=== PATIENT | male | born 1995 | race American Indian/Alaskan Native ===

== ENCOUNTER 2017-03-30 10:16 | Emergency (ER) | payer SELFPAY ==
[2017-03-30] MEDS ORDERED: ROCEPHIN IM ONE (11:19)
[2017-03-30] MEDS ORDERED: XYLOCAINE 1% MPF 5 mL INFILTRATI ONE (11:19)
[2017-03-30] MEDS ORDERED: MOTRIN PO ONE (11:20)
[2017-03-30] MEDS ORDERED: VIBRAMYCIN PO ONE (11:20)
--- NOTE | 2017-03-30 11:21 | Emergency Department Report ---
- General Chief complaint: Skin/Abscess/Foreign Body Stated complaint: GROIN PAIN Time Seen by Provider: 03/30/17 10:39 Source: patient Mode of arrival: Ambulatory Limitations: No Limitations - History of Present Illness MD complaint: lesion (right inguinal lesion) - Related Data Previous Rx's Medication Instructions Recorded Last Taken Type Ibuprofen [Motrin] 800 mg PO Q8HR PRN #60 tablet 09/02/15 Unknown Rx methOCARBAMOL [Robaxin TAB] 500 mg PO BID #10 tab 09/02/15 Unknown Rx traMADol [Ultram] 50 mg PO Q6HR PRN #14 tablet 09/02/15 Unknown Rx traMADol [Ultram 50 MG tab] 50 mg PO Q6HR PRN #20 tablet 11/04/15 Unknown Rx Allergies Allergy/AdvReac Type Severity Reaction Status Date / Time shellfish derived Allergy Itching Verified 09/02/15 18:57 Abscess Boil HPI - HPI Chief Complaint: Skin/Abscess/Foreign Body Stated Complaint: GROIN PAIN Time Seen by Provider: 03/30/17 10:39 Home Medications: Previous Rx's Medication Instructions Recorded Last Taken Type Ibuprofen [Motrin] 800 mg PO Q8HR PRN #60 tablet 09/02/15 Unknown Rx methOCARBAMOL [Robaxin TAB] 500 mg PO BID #10 tab 09/02/15 Unknown Rx traMADol [Ultram] 50 mg PO Q6HR PRN #14 tablet 09/02/15 Unknown Rx traMADol [Ultram 50 MG tab] 50 mg PO Q6HR PRN #20 tablet 11/04/15 Unknown Rx Allergies/Adverse Reactions: Allergies Allergy/AdvReac Type Severity Reaction Status Date / Time shellfish derived Allergy Itching Verified 09/02/15 18:57 ED Review of Systems ROS: Stated complaint: GROIN PAIN Other details as noted in HPI ED Past Medical Hx - Past Medical History Previous Medical History?: No - Surgical History Past Surgical History?: No - Social History Smoking Status: Never Smoker Substance Use Type: None - Medications Home Medications: Home Medications Medication Instructions Recorded Confirmed Last Taken Type Ibuprofen [Motrin] 800 mg PO Q8HR PRN #60 tablet 09/02/15 Unknown Rx methOCARBAMOL [Robaxin TAB] 500 mg PO BID #10 tab 09/02/15 Unknown Rx traMADol [Ultram] 50 mg PO Q6HR PRN #14 tablet 09/02/15 Unknown Rx traMADol [Ultram 50 MG tab] 50 mg PO Q6HR PRN #20 tablet 11/04/15 Unknown Rx ED Physical Exam - General Limitations: No Limitations ED Course Vital Signs 03/30/17 10:21 Temperature 97.7 F Pulse Rate 99 H Respiratory 18 Rate Blood Pressure 152/89 O2 Sat by Pulse 97 Oximetry Critical care attestation.: If time is entered above; I have spent that time in minutes in the direct care of this critically ill patient, excluding procedure time. ED Disposition Condition: Stable Referrals: PRIMARY CARE, [Primary Care Provider] - 3-5 Days
[2017-03-30 11:58] VITALS: BP 168/82
--- NOTE | 2017-03-30 12:46 | Emergency Department Report ---
Entered by JOSE SILVEIRA, acting as scribe for JAD REDD PA. <JAD REDD - Last Filed: 03/30/17 12:46> - General Chief complaint: Skin/Abscess/Foreign Body Stated complaint: GROIN PAIN Time Seen by Provider: 03/30/17 11:15 Source: patient Mode of arrival: Ambulatory Limitations: No Limitations - History of Present Illness Initial comments: 21 y/o male with PMHx of HIV and syphilis, presents to the ED c/o cyst in right groin area that began 3 days ago. Associated symptoms include pain to right groin area but he denies penile pain, testicular pain, difficulty urinating, fever and chills. Symptoms are described as a "pulling sensation" in groin. No alleviating factors but worse with walking. NKDA. SRINIVASAN complaint: other (cyst in right groin area ) Onset/Timin -: days(s) Location: genitals (right groin area) Severity: severe Severity scale (0 -10): 8 Quality: constant Consistency: constant Improves with: none Worsens with: none Context: none Associated symptoms: other (pain to right groin area, no penile pain, to testicular pain, no difficulty urinating, no fever, no chills) Treatments Prior to Arrival: none - Related Data Previous Rx's Medication Instructions Recorded Last Taken Type Ibuprofen [Motrin] 800 mg PO Q8HR PRN #60 tablet 09/02/15 Unknown Rx methOCARBAMOL [Robaxin TAB] 500 mg PO BID #10 tab 09/02/15 Unknown Rx traMADol [Ultram] 50 mg PO Q6HR PRN #14 tablet 09/02/15 Unknown Rx traMADol [Ultram 50 MG tab] 50 mg PO Q6HR PRN #20 tablet 11/04/15 Unknown Rx Doxycycline [Vibramycin CAP] 100 mg PO Q12HR #42 capsule 03/30/17 Unknown Rx Ibuprofen [Motrin] 600 mg PO Q8H PRN #25 tablet 03/30/17 Unknown Rx Allergies Allergy/AdvReac Type Severity Reaction Status Date / Time shellfish derived Allergy Itching Verified 09/02/15 18:57 Abscess Boil HPI - HPI Chief Complaint: Skin/Abscess/Foreign Body Stated Complaint: GROIN PAIN Time Seen by Provider: 03/30/17 10:39 Duration: 3 Days Location: Other (cyst in right groin area) History: No Fever, No Pain, No Purulent Drainage, No Numbness, No Foreign Body, No Previous History, No Insect Bite Home Medications: Previous Rx's Medication Instructions Recorded Last Taken Type Ibuprofen [Motrin] 800 mg PO Q8HR PRN #60 tablet 09/02/15 Unknown Rx methOCARBAMOL [Robaxin TAB] 500 mg PO BID #10 tab 09/02/15 Unknown Rx traMADol [Ultram] 50 mg PO Q6HR PRN #14 tablet 09/02/15 Unknown Rx traMADol [Ultram 50 MG tab] 50 mg PO Q6HR PRN #20 tablet 11/04/15 Unknown Rx Doxycycline [Vibramycin CAP] 100 mg PO Q12HR #42 capsule 03/30/17 Unknown Rx Ibuprofen [Motrin] 600 mg PO Q8H PRN #25 tablet 03/30/17 Unknown Rx Allergies/Adverse Reactions: Allergies Allergy/AdvReac Type Severity Reaction Status Date / Time shellfish derived Allergy Itching Verified 09/02/15 18:57 ED Review of Systems Comment: All other systems reviewed and negative Constitutional: denies: chills, fever Genitourinary: denies: testicular pain, other (penile pain, dificulty urinating) Skin: other (cyst in right groin area and pain) ED Past Medical Hx - Past Medical History Previous Medical History?: No - Surgical History Past Surgical History?: No - Social History Smoking Status: Never Smoker Substance Use Type: None - Medications Home Medications: Home Medications Medication Instructions Recorded Confirmed Last Taken Type Ibuprofen [Motrin] 800 mg PO Q8HR PRN #60 tablet 09/02/15 Unknown Rx methOCARBAMOL [Robaxin TAB] 500 mg PO BID #10 tab 09/02/15 Unknown Rx traMADol [Ultram] 50 mg PO Q6HR PRN #14 tablet 09/02/15 Unknown Rx traMADol [Ultram 50 MG tab] 50 mg PO Q6HR PRN #20 tablet 11/04/15 Unknown Rx Doxycycline [Vibramycin CAP] 100 mg PO Q12HR #42 capsule 03/30/17 Unknown Rx Ibuprofen [Motrin] 600 mg PO Q8H PRN #25 tablet 03/30/17 Unknown Rx ED Physical Exam - General Limitations: No Limitations General appearance: alert, in no apparent distress - Head Head exam: Present: atraumatic, normocephalic, normal inspection - Eye Eye exam: Present: normal appearance, PERRL, EOMI Pupils: Present: normal accommodation - ENT ENT exam: Present: normal exam, normal orophraynx, mucous membranes moist, TM's normal bilaterally, normal external ear exam - Neck Neck exam: Present: normal inspection, full ROM. Absent: tenderness - Respiratory Respiratory exam: Present: normal lung sounds bilaterally. Absent: wheezes, rales, rhonchi - Cardiovascular Cardiovascular Exam: Present: regular rate, normal rhythm, normal heart sounds. Absent: systolic murmur, diastolic murmur, rubs, gallop - GI/Abdominal GI/Abdominal exam: Present: soft, normal bowel sounds. Absent: tenderness, guarding, rebound - External exam: Present: normal external exam - Expanded Exam Expanded exam: Inguinal Lymphadenopathy: Right (palpable right sided inguinal adenopathy, no palpable or proturduign hernia in inguinal canal on fingertip palpation) image: 1 - small palpable nodule here, no fluctuance - Extremities Exam Extremities exam: Present: normal inspection, full ROM, normal capillary refill. Absent: tenderness, pedal edema, joint swelling, calf tenderness - Back Exam Back exam: Present: normal inspection, full ROM. Absent: tenderness, CVA tenderness (R), CVA tenderness (L), muscle spasm, paraspinal tenderness, vertebral tenderness, rash noted - Neurological Exam Neurological exam: Present: alert, oriented X3 - Psychiatric Psychiatric exam: Present: normal affect, normal mood - Skin Skin exam: Present: other (palpable nodule to right inguinal region) ED Course Vital Signs 03/30/17 03/30/17 03/30/17 10:21 11:33 11:57 Temperature 97.7 F Pulse Rate 99 H 72 Respiratory 18 16 18 Rate Blood Pressure 152/89 Blood Pressure 168/82 [Left] O2 Sat by Pulse 97 95 Oximetry ED Medical Decision Making - Medical Decision Making A/P: right inguinal adenopathy, clinical suspicion for LGV 1-I examined patient with Dr. Wells 2-Motrin when necessary for inguinal adenopathy, no clinical signs of inguinal hernia on palpation of inguinal canal, no scoral swelling or tenderness on exam 3-as patient is HIV positive (endorses he takes his HAART) sexually active will treat empirically for LGV as patient has clinical signs and symptoms concerning for this diagnosis. will send gc culture 4- as per [employer] recommendations empiric Tx with doxycycline 100 mg orally twice daily for 21 days 5- f/u with PMD and infectious diseases, will give pt referalls 6- I advised patient to return to the ED if swelling worsens if he experiences any testicular pain or swelling develops fevers or chills or any urinary symptoms which he does not currently have ED Disposition Disposition: - TO HOME OR SELFCARE Is pt being admited?: No Does the pt Need Aspirin: No Condition: Stable Instructions: Chlamydia Infection (ED) Additional Instructions: http://[email or web address].org/regions/[email or web address] Prescriptions: Doxycycline [Vibramycin CAP] 100 mg PO Q12HR #42 capsule Ibuprofen [Motrin] 600 mg PO Q8H PRN #25 tablet PRN Reason: Pain Referrals: MARY DUNN MD [Staff Physician] - 3-5 Days VIDA SCHOFIELD MD [Staff Physician] - 3-[address] [facility] [Provider Group] - 3-5 Days Forms: STI Treatment and Prevention, Work/School Release Form(ED) Time of Disposition: 11:40 <DORY WELLS - Last Filed: 03/30/17 19:54> ED Medical Decision Making - Medical Decision Making I have seen and examined this patient myself. I agree with the PA or [employer] plan as discussed. Likely LGV Damien Wells This documentation as recorded by the RAOUL russell ELIZABETH,accurately reflects the service I personally performed and the decisions made by me,JAD REDD PA.
== END 2017-03-30 11:57 | disposition home or self-care (01) ==
LOC: ED 10:16
DX: R10.30 Lower abdominal pain, unspecified (principal); Z91.013 Allergy to seafood
CPT/HCPCS: 87591; 96372; 99282; J0696

== ENCOUNTER 2017-08-20 07:32 | Inpatient (IN) | payer OTHER ==
[2017-08-20 08:19] LABS: Bilirubin,Urine NEG (Negative); Blood,Urine NEG (Negative); Ketones,Urine NEG (Negative); Leukocyte Esterase,Urine NEG (Negative); Mucus,Urine 3+ /HPF; Nitrite,Urine NEG (Negative); Protein,Urine <15 mg/dL mg/dL (Negative)
[2017-08-20 08:23] LABS: Basophils % (Auto) 0.2 % (0.0-1.8); Eosinophils % (Auto) 0.1 % (0.0-4.3); Hematocrit 44.6 % (35.5-45.6); Hemoglobin 14.6 gm/dl (11.8-15.2); Mean Corpuscular HGB Conc 33 % (32-34); Mean Corpuscular Hemoglobin 28 pg (28-32); Mean Corpuscular Volume 84 fl (84-94); Platelet Count 197 K/mm3 (140-440); Red Blood Count 5.29 M/mm3 (3.65-5.03); Red Cell Distribution Width 13.6 % (13.2-15.2); White Blood Count 11.6 K/mm3 (4.5-11.0)
[2017-08-20 08:37] LABS: Alanine Aminotransferase 21 units/L (7-56); Albumin 4.5 g/dL (3.9-5); Albumin/Globulin Ratio 1.4 %; Alkaline Phosphatase 61 units/L (35-129); Anion Gap 17 mmol/L; BUN/Creatinine Ratio 9; Blood Urea Nitrogen 9 mg/dL (9-20); Calcium 8.9 mg/dL (8.4-10.2); Carbon Dioxide 27 mmol/L (22-30); Chloride 97.2 mmol/L (98-107); Glucose 96 mg/dL (75-100); Lipase 28 units/L (13-60); Potassium 4.3 mmol/L (3.6-5.0); Sodium 137 mmol/L (137-145); Total Protein 7.8 g/dL (6.3-8.2)
[2017-08-20] MEDS ORDERED: NACL 0.9% 1000 ML 1,000 ML IV ONE ×2 (14:54→20:10)
[2017-08-20] MEDS ORDERED: ZITHROMAX PO ONE ×2 (15:48→20:02)
[2017-08-20] MEDS ORDERED: cefTRIAXone 0.25 GM in NACL 0.9% 20 ML IV SCH (16:00)
[2017-08-20] MEDS ORDERED: TYLENOL PO ONE (17:21)
--- NOTE | 2017-08-20 19:44 | Cat Scan Report ---
FINAL REPORT EXAM: CT ABDOMEN PELVIS W CON HISTORY: fever, diarhea TECHNIQUE: Standard enhanced CT of the abdomen and pelvis. Delayed imaging through the kidneys and bladder was obtained. Coronal and sagittal reconstruction was also performed. Contrast: 100 mL Isovue 300 given IV. Readi-Cat given as oral. PRIORS: None. FINDINGS: Concentric wall thickening from the splenic flexure is to the proximal sigmoid colon. Mild surrounding stranding in the adjacent fat is seen. Findings are consistent with colitis or Crohn's disease. Ulcerative colitis is less likely. No diverticular disease is present. Within the abdomen, the liver, pancreas, gallbladder, adrenal glands, and kidneys are unremarkable. The spleen is enlarged measuring 16.2 cm without focal abnormality. No evidence for retroperitoneal or pelvic lymphadenopathy is seen. The bowel loops have normal caliber. No soft tissue mass, fluid collection, or free air is seen within the abdomen or pelvis. The appendix is normal. Within the pelvis, the bladder is unremarkable. The prostate is normal. No evidence for mass or lymphadenopathy is seen in the pelvis. Images through the upper abdomen include the lung bases which are expanded and clear. Bony structures show no focal abnormalities and are intact. IMPRESSION: 1. Diffuse concentric wall thickening from the splenic flexure to the proximal sigmoid colon. Findings most likely consistent with colitis or Crohn's disease. 2. Megaly without focal abnormality.
--- NOTE | 2017-08-20 19:51 | Emergency Department Report ---
ED Abdominal Pain HPI - General Chief Complaint: Abdominal Pain Stated Complaint: ABDOMINAL PAIN Time Seen by Provider: 08/20/17 14:28 Source: patient Mode of arrival: Ambulatory Limitations: No Limitations - History of Present Illness Initial Comments: 22-year-old male with no significant past medical history presents to the hospital complaining of abdominal pain and diarrhea 1 week. Patient complains of generalized crampy abdominal pain rated 7/10 in intensity followed by multiple bowel movements containing only mucus. Pain worsens prior to bowel movement and is relieved after completion. For last 2 days bowel movements have include loose stools in addition to mucus. No blood reported. No fever reported. No recent travel. Patient does engage in receptive anal intercourse but denies acute or rectal pain. No fever reported. Severity scale (0 -10): 0 - Related Data Home Medications Medication Instructions Recorded Confirmed Last Taken Elviteg/Cob/Emtri/Tenof Alafen 1 each PO DAILY 08/20/17 08/20/17 08/19/17 [Genvoya Tablet] Allergies Allergy/AdvReac Type Severity Reaction Status Date / Time shellfish derived Allergy Itching Verified 09/02/15 18:57 ED Review of Systems ROS: Stated complaint: ABDOMINAL PAIN Other details as noted in HPI Comment: All other systems reviewed and negative Other: Constitutional: No fevers chills Eyes: No eye pain visual changes ENT: No ear pain or throat pain Neck: Denies pain Respiratory: Denies cough wheezing shortness of breath Cardiovascular: Denies chest pain, palpitations, syncope GI: As per HPI : Denies dysuria Musculoskeletal: Denies back pain Skin: Denies rash, lesions, erythema Neurologic: Denies headache, numbness, weakness Psychiatric: Denies suicidal ideation, hallucinations ED Past Medical Hx - Past Medical History Previous Medical History?: No - Surgical History Past Surgical History?: No - Social History Smoking Status: Never Smoker Substance Use Type: Alcohol - Medications Home Medications: Home Medications Medication Instructions Recorded Confirmed Last Taken Type Elviteg/Cob/Emtri/Tenof Alafen 1 each PO DAILY 08/20/17 08/20/17 08/19/17 History [Genvoya Tablet] ED Physical Exam - General Limitations: No Limitations - Other Other exam information: General: No limitations, patient is alert in no acute distress Head exam: Atraumatic, normocephalic Eyes exam: Normal appearance ENT: Moist mucous membrane, normal oropharynx Neck exam: Normal inspection, full range of motion, no meningismus nontender Respiratory exam: Clear to auscultation bilateral, no wheezes, rales, crackles Cardiovascular: Normal rate and rhythm, normal heart sounds Abdomen: Soft, nondistended, mild generalized abdominal tenderness, normal bowel sounds, no rebound or guarding Rectal: No rectal tenderness or palpable abscess. Brown stool no gross blood Extremity: Full range of motion normal inspection no deformity Back: Normal Inspection, full range of motion, no tenderness Neurologic: Alert, oriented x3, cranial nerves intact, no motor or sensory deficit Psychiatric: normal affect, normal mood Skin: Warm, dry, intact ED Course Vital Signs 08/20/17 08/20/17 08/20/17 07:46 07:48 13:08 Temperature 98.4 F Pulse Rate 100 H Respiratory 20 Rate Blood Pressure 145/84 145/84 Blood Pressure [Left] O2 Sat by Pulse 98 98 Oximetry 08/20/17 08/20/17 08/20/17 13:16 13:17 13:18 Temperature Pulse Rate 91 H Respiratory 18 18 Rate Blood Pressure 142/81 Blood Pressure 142/81 [Left] O2 Sat by Pulse 97 100 Oximetry 08/20/17 08/20/17 08/20/17 13:30 13:46 14:00 Temperature Pulse Rate Respiratory Rate Blood Pressure 142/81 142/81 136/73 Blood Pressure [Left] O2 Sat by Pulse 98 100 100 Oximetry 08/20/17 08/20/17 08/20/17 14:16 14:30 14:46 Temperature Pulse Rate Respiratory Rate Blood Pressure 136/73 136/73 136/73 Blood Pressure [Left] O2 Sat by Pulse 100 100 100 Oximetry 08/20/17 08/20/17 08/20/17 15:19 15:30 15:46 Temperature Pulse Rate 84 83 Respiratory 26 H 25 H Rate Blood Pressure 151/97 151/97 151/97 Blood Pressure [Left] O2 Sat by Pulse 98 100 100 Oximetry 08/20/17 08/20/17 16:00 16:16 Temperature Pulse Rate 93 H 86 Respiratory 24 26 H Rate Blood Pressure 159/94 159/94 Blood Pressure [Left] O2 Sat by Pulse 100 100 Oximetry - Reevaluation(s) Reevaluation #1: 08/20/17 19:49 Patient received normal saline. Patient developed a fever in the ED and therefore CT and Tylenol were ordered - Consultations Consultation #1: 08/20/17 15:[address] Ness counter professional GI doctor. Suggested treatment with Rocephin and a Z-Edmar for proctitis. Medications initiated in the ED 08/20/17 20:00 Case was rediscussed with Dr Ness who suggest admission to the hospital for IV antibiotics for colitis. Recommend Flagyl 500 mg 3 times a day. Patient may eat (do not make po). ED Medical Decision Making - Lab Data Result diagrams: 08/20/17 08:02 08/20/17 08:02 Lab Results 08/20/17 08/20/17 08/20/17 Range/Units 07:59 08:02 08:02 WBC 11.6 H (4.5-11.0) K/mm3 RBC 5.29 H (3.65-5.03) M/mm3 Hgb 14.6 (11.8-15.2) gm/dl Hct 44.6 (35.5-45.6) % MCV 84 (84-94) fl MCH 28 (28-32) pg MCHC 33 (32-34) % RDW 13.6 (13.2-15.2) % Plt Count 197 (140-440) K/mm3 Lymph % (Auto) 10.9 L (13.4-35.0) % [place] % (Auto) 12.5 H (0.0-7.3) % Eos % (Auto) 0.1 (0.0-4.3) % Baso % (Auto) 0.2 (0.0-1.8) % Lymph # 1.3 (1.2-5.4) K/mm3 [place] # 1.5 H (0.0-0.8) K/mm3 Eos # 0.0 (0.0-0.4) K/mm3 Baso # 0.0 (0.0-0.1) K/mm3 Seg Neutrophils % 76.3 H (40.0-70.0) % Seg Neutrophils # 8.8 H (1.8-7.7) K/mm3 Sodium 137 (137-145) mmol/L Potassium 4.3 (3.6-5.0) mmol/L Chloride 97.2 L (98-107) mmol/L Carbon Dioxide 27 (22-30) mmol/L Anion Gap 17 mmol/L BUN 9 (9-20) mg/dL Creatinine 1.0 (0.8-1.5) mg/dL Estimated GFR > 60 ml/min BUN/Creatinine Ratio 9 % Glucose 96 (75-100) mg/dL Calcium 8.9 (8.4-10.2) mg/dL Total Bilirubin 0.70 (0.1-1.2) mg/dL AST 22 (5-40) units/L ALT 21 (7-56) units/L Alkaline Phosphatase 61 (35-129) units/L Total Protein 7.8 (6.3-8.2) g/dL Albumin 4.5 (3.9-5) g/dL Albumin/Globulin Ratio 1.4 % Lipase 28 (13-60) units/L Urine Color Yellow (Yellow) Urine Turbidity Clear (Clear) Urine pH 5.0 (5.0-7.0) Ur Specific [place] 1.032 H (1.003-1.030) Urine Protein <15 mg/dl (Negative) mg/dL Urine Glucose (UA) Neg (Negative) mg/dL Urine Ketones Neg (Negative) mg/dL Urine Blood Neg (Negative) Urine Nitrite Neg (Negative) Urine Bilirubin Neg (Negative) Urine Urobilinogen 2.0 (<2.0) mg/dL Ur Leukocyte Esterase Neg (Negative) Urine WBC (Auto) 2.0 (0.0-6.0) /HPF Urine RBC (Auto) 2.0 (0.0-6.0) /HPF U Epithel Cells (Auto) < 1.0 (0-13.0) /HPF Urine Mucus 3+ /HPF - Radiology Data Radiology results: report reviewed CT abdomen and pelvis with IV contrast: Concentric wall thickening of the splenic flexure to the proximal sigmoid clubbing. Findings most likely consistent with colitis or Crohn's disease. Ulcerative colitis is less likely. No diverticular disease is present. Splenomegaly without focal abnormality - Medical Decision Making Plans admit patient to hospital for further IV antibiotics as recommended by GI. Patient received IV Rocephin and 1 g azithromycin to treat for possible STD related proctitis. GI recommended to continue Flagyl 500 mg 3 times a day and they will evaluate. Stool studies are pending in the lab. Patient continues to have multiple episodes of diarrhea in the ED - Differential Diagnosis colitis, proctitis, infectious diarrhea Critical Care Time: No Critical care attestation.: If time is entered above; I have spent that time in minutes in the direct care of this critically ill patient, excluding procedure time. ED Disposition Clinical Impression: Colitis Disposition: OP ADMIT IP TO THIS HOSP Is pt being admited?: Yes Condition: Stable Time of Disposition: 20:02 (Dr Montague/hosp)
[2017-08-20] MEDS ORDERED: FLAGYL 500 MG/100 ML 500 MG/100 ML BAG IV SCH (20:00)
[2017-08-20] MEDS ORDERED: ZOFRAN IV PRN (22:46)
[2017-08-20] MEDS ORDERED: TYLENOL PO PRN (22:46)
--- NOTE | 2017-08-20 22:46 | History and Physical Report ---
History of Present Illness Date of examination: 08/27/17 Date of admission: 08/20/17 20:16 History of present illness: 22-year-old man comes emergency room with complaint of abdominal pain, located in the lower abdomen, started 2 days ago. He describes sharp pain, intermittent in nature lasting for 30 seconds, intensity 7/10, radiating up to the umbilicus, he cannot identify exacerbating or relieving factors. He complained of diarrhea 4 days, multiple episodes, nonbloody, fever, no chills. He denies use of recent antibiotic. He stated that his blood pressure fluctuated as been elevated however over the last 6 months Review Of Systems: Constitutional: no weight loss Ears, eyes, nose, mouth and throat: no nasal congestion, no nasal discharge, no sinus pressure, blurry vision, diplopia Neck: No neck pain or rigidity. Cardiovascular:no chest pain, orthopnea, palpitations Respiratory: No shortness of breath, cough Gastrointestinal: no hematochezia Genitourinary : no dysuria, frequency , hematuria Musculoskeletal: no muscle ache Integumentary: no rash, no pruritis Neurological: no parathesias, focal weakness Endocrine: no cold or heat intolerance, no polyuria or polydipsia Hematologic/Lymphatic: no easy bruising, no easy bleeding, no gland swelling Allergic/Immunologic: no urticaria, no angioedema. PAST MEDICAL HISTORY:none PAST SURGICAL HISTORY:none FAMILY HISTORY: Hypertension SOCIAL HISTORY: Denies alcohol, tobacco, drugs Medications and Allergies Allergies Allergy/AdvReac Type Severity Reaction Status Date / Time shellfish derived Allergy Itching Verified 09/02/15 18:57 Home Medications Medication Instructions Recorded Confirmed Last Taken Type Elviteg/Cob/Emtri/Tenof Alafen 1 each PO DAILY 08/20/17 08/20/17 08/19/17 History [Genvoya Tablet] Acetaminophen [Acetaminophen TAB] 325 mg PO Q4H PRN #30 tablet 08/22/17 Unknown Rx Levofloxacin [Levaquin TAB] 500 mg PO Q24HR #7 day 08/22/17 Unknown Rx metroNIDAZOLE [Flagyl TAB] 500 mg PO Q8HR #7 day 08/22/17 Unknown Rx Active Meds: Active Medications Ceftriaxone Sodium 0.25 gm/ (Sodium Chloride) 20 mls @ 20 mls/10 min IV ONCE MARGY PRN Reason: Protocol Last Admin: 08/20/17 16:40 Dose: 20 mls/10 min Metronidazole (Flagyl 500 Mg/100 Ml) 500 mg in 100 mls @ 200 mls/hr IV ONCE MARGY Exam - Physical Exam Narrative exam: Gen. appearance: Patient lying in bed in no acute distress HEENT: Normocephalic/atraumatic, pupils equal round reactive to light, extra alkaline movement intact, no scleral icterus, no JVD or thyromegaly or nodule, neck is supple, mucous membrane moist, no erythema or exudate Heart: S1-S2, regular rate and rhythm Lungs: Clear to auscultation bilateral breathing comfortable Abdomen: Positive bowel sounds, tender in the lower abdomen, nondistended, no organomegaly Extremities: No edema, cyanosis, clubbing Neuro:: Oriented 3 , cranial nerves II-12 intact, speech, motor intact Skin: No rash, nodules, warm dry - Constitutional Vitals: Temp Pulse Resp BP Pulse Ox 98.8 F 85 24 153/87 95 08/20/17 21:02 08/20/17 19:00 08/20/17 19:00 08/20/17 20:00 08/20/17 20:00 Results - Labs CBC & Chem 7: 08/22/17 04:21 08/22/17 04:21 Labs: Abnormal lab results 08/20/17 08/20/17 08/20/17 Range/Units 07:59 08:02 08:02 WBC 11.6 H (4.5-11.0) K/mm3 RBC 5.29 H (3.65-5.03) M/mm3 Lymph % (Auto) 10.9 L (13.4-35.0) % [place] % (Auto) 12.5 H (0.0-7.3) % [place] # 1.5 H (0.0-0.8) K/mm3 Seg Neutrophils % 76.3 H (40.0-70.0) % Seg Neutrophils # 8.8 H (1.8-7.7) K/mm3 Chloride 97.2 L (98-107) mmol/L Ur Specific [place] 1.032 H (1.003-1.030) - Imaging and Cardiology CT scan - abdomen: report reviewed CT scan - pelvis: report reviewed Assessment and Plan Assessment Diffuse colitis Elevated blood pressure Plan Admit to medicine Start IV fluids, bowel rest, IV antibiotics Start IV morphine, IV hydralazine for blood pressure control Consult GI, DVT prophylaxis Follow stool cultures
[2017-08-20] MEDS ORDERED: APRESOLINE IV PRN (23:14)
[2017-08-20] MEDS: MORPHINE IV PRN (23:47)
[2017-08-20] MEDS: NACL 0.45% 1000 ML 1,000 ML IV SCH (23:47)
[2017-08-21] MEDS: MORPHINE IV PRN ×2 (04:26→21:56)
[2017-08-21 04:44] LABS: Basophils % (Auto) 0.2 % (0.0-1.8); Eosinophils % (Auto) 0.1 % (0.0-4.3); Hematocrit 40.3 % (35.5-45.6); Hemoglobin 13.4 gm/dl (11.8-15.2); Mean Corpuscular HGB Conc 33 % (32-34); Mean Corpuscular Hemoglobin 28 pg (28-32); Mean Corpuscular Volume 83 fl (84-94); Platelet Count 169 K/mm3 (140-440); Red Blood Count 4.84 M/mm3 (3.65-5.03); Red Cell Distribution Width 13.5 % (13.2-15.2); White Blood Count 10.7 K/mm3 (4.5-11.0)
[2017-08-21 05:11] LABS: Anion Gap 18 mmol/L; BUN/Creatinine Ratio 10; Blood Urea Nitrogen 8 mg/dL (9-20); Calcium 7.8 mg/dL (8.4-10.2); Carbon Dioxide 23 mmol/L (22-30); Chloride 97.4 mmol/L (98-107); Glucose 104 mg/dL (75-100); Potassium 3.8 mmol/L (3.6-5.0); Sodium 135 mmol/L (137-145)
[2017-08-21] MEDS ORDERED: FLAGYL 500 MG/100 ML 500 MG/100 ML BAG IV SCH (06:00)
--- NOTE | 2017-08-21 07:30 | Event Note ---
Date: 08/21/17 - full consult dictated - pt w/ mild colitis - stable, advance diet to soft - ok to d/c today if tolerating po w/ f/u outpt
--- NOTE | 2017-08-21 07:55 | Consultation ---
REFERRING PHYSICIAN: Dr. Bowser. INDICATION: 1. Abdominal pain. 2. Colitis. HISTORY OF PRESENT ILLNESS: The patient is a 22-year-old black male who presents for abdominal pain. The patient reports four days ago he started to have abdominal pain with cramping and subsequently developed some loose nonbloody stool. The patient describes the pain as sharp and nonradiating. He reports he has never had pain like this in the past. He reports mild nausea without vomiting. Denies any heartburn. Denies any diet or medication changes. The patient subsequently came to Emergency Room where evaluation included a CT scan, which showed colitis. The patient subsequently was admitted and GI consulted. No other specific problems or complaints. PAST MEDICAL HISTORY: None. MEDICATIONS: None. ALLERGIES: No known drug allergies. SOCIAL HISTORY: Reports social alcohol, denies tobacco. FAMILY HISTORY: Negative for colon cancer, IBD, or liver disease. REVIEW OF SYSTEMS: GENERAL: Reports mild weakness. HEENT: No visual complaints or tinnitus. PULMONARY: No shortness of breath. No cough. No chest pain. GASTROINTESTINAL: Reports abdominal pain. All points of 13-point review of systems otherwise negative. PHYSICAL EXAMINATION: VITAL SIGNS: Temperature of 100.3, pulse 89, respirations 20, blood pressure 146/71. GENERAL: Fairly nourished black male in no acute distress. HEENT: Pupils equal, round, reactive to light and accommodation. Extraocular muscles intact. PULMONARY: Clear to auscultation bilaterally. CARDIOVASCULAR: Regular rhythm. Normal S1, S2. ABDOMEN: Positive bowel sounds, soft, mild lower abdominal pain. No guarding, no rebound. SKIN: No obvious rashes. LABORATORY DATA: Pertinent for white count of 10.7, hemoglobin and hematocrit of 13.4 and 40.3, platelet count of 169. Chem-7 within normal limits. LFTs within normal limits. CT scan showed possible signs of diffuse concentric thickening of the splenic flexure to the proximal sigmoid consistent with colitis. ASSESSMENT AND PLAN: Now, a 22-year-old black male presents with 4 days of abdominal pain with loose mucusy stools with a CT scan was consistent with marked left-sided colitis. Suspect possibly infectious versus inflammatory versus less likely ischemic. The patient is otherwise doing well at this time. Management is noted below. PLAN: 1. Agree with Cipro and Flagyl IV as started. 2. We will review CT scan. 3. The patient on clear liquid diet and advance to soft. 4. If the patient is tolerating p.o. okay, give 7-10 day course of p.o. antibiotics and discharge, will follow and consideration of colonoscopy as an outpatient. 5. We will follow. JOB# [id number] CAB/NTS
[2017-08-21] MEDS ORDERED: REGLAN IV PRN (09:30)
[2017-08-21] MEDS ORDERED: LEVAQUIN 750MG/150ML 750 MG/150 ML BAG IV SCH (10:00)
[2017-08-21] MEDS: LEVAQUIN PO SCH (10:27)
--- NOTE | 2017-08-21 13:22 | Progress Note ---
Assessment and Plan Assessment and plan: Patient is a 22-year-old man who presents with abdominal pain. CT abdomen and pelvis with IV contrast showed wall thickening suspected colitis or Crohn's disease -Sepsis colitis, POA has evident by heart rate 100 respiration 26: Continue antibiotics, temperature is up to 100.3F get blood cultures -Elevated blood pressure without hypertension due to above -Hyponatremia, hypovolemia: ivf GI cleared to go home but patient spiked low grade temp. Also, i will change iv abx to po. If he tolerates diet and oral abx then d/c home tomorrow. GI can follow up stool and blood cultures. History Interval history: Patient was seen and examined. Follow-up on current diagnosis/abd pains. Overnight uneventful. Patient denies any chest pain, shortness breath, nausea/ vomiting or severe headaches. Imaging, nursing note, chart, labs and old chart reviewed. Discussed with patient. Hospitalist Physical - Physical exam Narrative exam: GEN: WDWN, NAD, AWAKE, ALERT, ORIENTATED x 3 HEENT: NCAT, EOMI, PERRL, OP Clear NECK: supple, no adenopathy, no thyromegaly, no JVD CVS/HEART: RRR, NORMAL S1S2, NO JVD, pulses present bilaterally CHEST/LUNGS: CTA B, Symmetrical chest expansion, good air entry bilaterally GI/Abdomen: soft, diffuse mild tenderness, ND, good bowel sounds, no guarding or rebound /Bladder: no suprapubic tenderness, no CVA or paraspinal tenderness EXT/Skin: no c/c/e, no obvious rash MSK: FROM x 4 Neuro: CN 2-12 grossly intact, no new focal deficits Psych: calm - Constitutional Vitals: Temp Pulse Resp BP Pulse Ox 99.0 F 84 18 152/77 96 08/21/17 07:40 08/21/17 07:40 08/21/17 07:40 08/21/17 07:40 08/21/17 07:40 Results - Labs CBC & Chem 7: 08/21/17 04:18 08/21/17 04:18 Labs: Laboratory Last Values WBC 10.7 K/mm3 (4.5-11.0) 08/21/17 04:18 RBC 4.84 M/mm3 (3.65-5.03) 08/21/17 04:18 Hgb 13.4 gm/dl (11.8-15.2) 08/21/17 04:18 Hct 40.3 % (35.5-45.6) 08/21/17 04:18 MCV 83 fl (84-94) L 08/21/17 04:18 MCH 28 pg (28-32) 08/21/17 04:18 MCHC 33 % (32-34) 08/21/17 04:18 RDW 13.5 % (13.2-15.2) 08/21/17 04:18 Plt Count 169 K/mm3 (140-440) 08/21/17 04:18 Lymph % (Auto) 13.4 % (13.4-35.0) 08/21/17 04:18 [place] % (Auto) 13.0 % (0.0-7.3) H 08/21/17 04:18 Eos % (Auto) 0.1 % (0.0-4.3) 08/21/17 04:18 Baso % (Auto) 0.2 % (0.0-1.8) 08/21/17 04:18 Lymph # 1.4 K/mm3 (1.2-5.4) 08/21/17 04:18 [place] # 1.4 K/mm3 (0.0-0.8) H 08/21/17 04:18 Eos # 0.0 K/mm3 (0.0-0.4) 08/21/17 04:18 Baso # 0.0 K/mm3 (0.0-0.1) 08/21/17 04:18 Seg Neutrophils % 73.3 % (40.0-70.0) H 08/21/17 04:18 Seg Neutrophils # 7.9 K/mm3 (1.8-7.7) H 08/21/17 04:18 Sodium 135 mmol/L (137-145) L 08/21/17 04:18 Potassium 3.8 mmol/L (3.6-5.0) 08/21/17 04:18 Chloride 97.4 mmol/L (98-107) L 08/21/17 04:18 Carbon Dioxide 23 mmol/L (22-30) 08/21/17 04:18 Anion Gap 18 mmol/L 08/21/17 04:18 BUN 8 mg/dL (9-20) L 08/21/17 04:18 Creatinine 0.8 mg/dL (0.8-1.5) 08/21/17 04:18 Estimated GFR > 60 ml/min 08/21/17 04:18 BUN/Creatinine Ratio 10 % 08/21/17 04:18 Glucose 104 mg/dL (75-100) H 08/21/17 04:18 Calcium 7.8 mg/dL (8.4-10.2) L 08/21/17 04:18 Total Bilirubin 0.70 mg/dL (0.1-1.2) 08/20/17 08:02 AST 22 units/L (5-40) 08/20/17 08:02 ALT 21 units/L (7-56) 08/20/17 08:02 Alkaline Phosphatase 61 units/L (35-129) 08/20/17 08:02 Total Protein 7.8 g/dL (6.3-8.2) 08/20/17 08:02 Albumin 4.5 g/dL (3.9-5) 08/20/17 08:02 Albumin/Globulin Ratio 1.4 % 08/20/17 08:02 Lipase 28 units/L (13-60) 08/20/17 08:02 Urine Color Yellow (Yellow) 08/20/17 07:59 Urine Turbidity Clear (Clear) 08/20/17 07:59 Urine pH 5.0 (5.0-7.0) 08/20/17 07:59 Ur Specific [place] 1.032 (1.003-1.030) H 08/20/17 07:59 Urine Protein <15 mg/dl mg/dL (Negative) 08/20/17 07:59 Urine Glucose (UA) Neg mg/dL (Negative) 08/20/17 07:59 Urine Ketones Neg mg/dL (Negative) 08/20/17 07:59 Urine Blood Neg (Negative) 08/20/17 07:59 Urine Nitrite Neg (Negative) 08/20/17 07:59 Urine Bilirubin Neg (Negative) 08/20/17 07:59 Urine Urobilinogen 2.0 mg/dL (<2.0) 08/20/17 07:59 Ur Leukocyte Esterase Neg (Negative) 08/20/17 07:59 Urine WBC (Auto) 2.0 /HPF (0.0-6.0) 08/20/17 07:59 Urine RBC (Auto) 2.0 /HPF (0.0-6.0) 08/20/17 07:59 U Epithel Cells (Auto) < 1.0 /HPF (0-13.0) 08/20/17 07:59 Urine Mucus 3+ /HPF 08/20/17 07:59
[2017-08-21] MEDS: FLAGYL PO SCH ×2 (14:18→21:17)
[2017-08-21] MEDS: NACL 0.45% 1000 ML 1,000 ML IV SCH (17:41)
[2017-08-22 04:52] LABS: Hematocrit 40.5 % (35.5-45.6); Hemoglobin 13.2 gm/dl (11.8-15.2); Mean Corpuscular HGB Conc 33 % (32-34); Mean Corpuscular Hemoglobin 27 pg (28-32); Mean Corpuscular Volume 83 fl (84-94); Platelet Count 178 K/mm3 (140-440); Red Blood Count 4.91 M/mm3 (3.65-5.03); Red Cell Distribution Width 13.3 % (13.2-15.2); White Blood Count 8.8 K/mm3 (4.5-11.0)
[2017-08-22 05:13] LABS: Anion Gap 18 mmol/L; BUN/Creatinine Ratio 9; Blood Urea Nitrogen 7 mg/dL (9-20); Calcium 8.3 mg/dL (8.4-10.2); Carbon Dioxide 26 mmol/L (22-30); Chloride 100.2 mmol/L (98-107); Glucose 97 mg/dL (75-100); Potassium 3.7 mmol/L (3.6-5.0); Sodium 140 mmol/L (137-145)
[2017-08-22] MEDS: FLAGYL PO SCH (05:44)
[2017-08-22] MEDS: LEVAQUIN PO SCH (09:59)
[2017-08-22 10:03] VITALS: BP 128/78
--- NOTE | 2017-08-22 10:37 | Discharge Summary ---
Providers - Providers Date of Admission: 08/20/17 20:16 Date of discharge: 08/22/17 Attending physician: HOMERO RASMUSSEN 08/20/17 20:01 Consult to Physician [CONS] Urgent Consulting Provider: MONIQUE NESS Reason For Exam: colitis Place consult to:: Dr. Ness Notified:: Answering Service Phone number called:: [phone] Was contact made?: Yes If yes, spoke with:: Dr. Ness Time called:: 19:57 Comment:: Dr. Bowser (er dr) spoke with Dr. Ness Primary care physician: CERTIFIED SURGICAL ASSISTANT Hospitalization Condition: Stable Hospital course: Patient is a 22-year-old man who presents with abdominal pain. CT abdomen and pelvis with IV contrast showed wall thickening suspected colitis or Crohn's disease -Sepsis colitis, POA has evident by heart rate 100 respiration 26: Continue antibiotics, temperature is up to 100.3F get blood cultures -Elevated blood pressure without hypertension due to above -Hyponatremia, hypovolemia: ivf GI cleared to go home but patient spiked low grade temp. Also, i will change iv abx to po. GI can follow up stool and blood cultures. N.B. I did not know he was HIV until medication reconciliation, he never mentioned to me. Disposition: DC-01 TO HOME OR SELFCARE Time spent for discharge: 34 minutes Core Measure Documentation - Palliative Care Palliative Care/ Comfort Measures: Not Applicable - Core Measures Any of the following diagnoses?: none - VTE Discharge Requirements Deep Vein Thrombosis/Pulmonary Embolism Present on Admission: No Has pt received <5 days of overlap therapy or INR<2.0: No Anticoagulant overlap therapy prescribed at discharge: No Contraindication No Overlap Therapy order at DC: Not Indicated Exam - Physical Exam Narrative exam: GEN: WDWN, NAD, AWAKE, ALERT, ORIENTATED x 3 HEENT: NCAT, EOMI, PERRL, OP Clear NECK: supple, no adenopathy, no thyromegaly, no JVD CVS/HEART: RRR, NORMAL S1S2, NO JVD, pulses present bilaterally CHEST/LUNGS: CTA B, Symmetrical chest expansion, good air entry bilaterally GI/Abdomen: soft, diffuse mild tenderness, ND, good bowel sounds, no guarding or rebound /Bladder: no suprapubic tenderness, no CVA or paraspinal tenderness EXT/Skin: no c/c/e, no obvious rash MSK: FROM x 4 Neuro: CN 2-12 grossly intact, no new focal deficits Psych: calm - Constitutional Vitals: Temp Pulse Resp BP Pulse Ox 98.1 F 81 20 128/78 100 08/22/17 08:43 08/22/17 08:43 08/22/17 08:43 08/22/17 08:43 08/22/17 08:43 Plan Activity: other (no strenous activites) Diet: other (soft for couple of days and advance as tolerates) Additional Instructions: follow up stool culture and blood cultures with GI doctor. Need colonoscopy in 4-6 weeks, schedule with Gi doctor Follow up with: PRIMARY MD OMAIRA [Primary Care Provider] - 7 Days MONIQUE NESS MD [Staff Physician] - 7 Days Prescriptions: Levofloxacin [Levaquin TAB] 500 mg PO Q24HR #7 day metroNIDAZOLE [Flagyl TAB] 500 mg PO Q8HR #7 day
--- NOTE | 2017-08-22 10:54 | Gastroenterology Progress Note ---
Assessment and Plan GI: pt stable overnight, tolerating po - continue po antibiotics as outpt - ok to d/c from GI standpoint with follow up outpt - will sign off, call if needed Subjective Date of service: 08/22/17 Interval history: - reports doing well, denies GI complaints Objective - Constitutional Vitals: Temp Pulse Resp BP Pulse Ox 98.1 F 81 20 128/78 100 08/22/17 08:43 08/22/17 08:43 08/22/17 08:43 08/22/17 08:43 08/22/17 08:43 General appearance: no acute distress - Respiratory Respiratory: bilateral: CTA - Cardiovascular Rhythm: regular Heart Sounds: Present: S1 & S2 - Gastrointestinal General gastrointestinal: Present: soft, non-tender - Labs CBC & Chem 7: 08/22/17 04:21 08/22/17 04:21 Labs: Laboratory Results - last 24 hr 08/22/17 08/22/17 04:21 04:21 WBC 8.8 RBC 4.91 Hgb 13.2 Hct 40.5 MCV 83 L MCH 27 L MCHC 33 RDW 13.3 Plt Count 178 Sodium 140 Potassium 3.7 Chloride 100.2 Carbon Dioxide 26 Anion Gap 18 BUN 7 L Creatinine 0.8 Estimated GFR > 60 BUN/Creatinine Ratio 9 Glucose 97 Calcium 8.3 L
== END 2017-08-22 13:44 | disposition home or self-care (01) | DRG 872 ==
LOC: ED 07:32 → 3A 20:16
PROVIDERS: ADMIT Internal Medicine; ATTEND Internal Medicine
DX: A41.9 Sepsis, unspecified organism (principal); E87.1 Hypo-osmolality and hyponatremia; K50.90 Crohn's disease, unspecified, without complications; K52.9 Noninfective gastroenteritis and colitis, unspecified; E86.1 Hypovolemia; R03.0 Elevated blood-pressure reading, without diagnosis of hypertension; Z91.013 Allergy to seafood; Z79.899 Other long term (current) drug therapy; Z82.49 Family history of ischemic heart disease and other diseases of the circulatory system
CPT/HCPCS: 36415; 74177; 80048; 80053; 81001; 82270; 83690; 85007; 85025; 85027; 87040; 87045; 87493; 96361; 96374; 99285; J0696; J2270; J7030; Q9967

== ENCOUNTER 2019-06-02 04:52 | Emergency (ER) | payer BC ==
[2019-06-02] MEDS ORDERED: TYLENOL PO ONE (05:32)
[2019-06-02] MEDS ORDERED: IBUPROFEN PO ONE (05:32)
--- NOTE | 2019-06-02 06:01 | XRay Report ---
CHEST 2 VIEWS INDICATION / CLINICAL INFORMATION: cough. COMPARISON: None available. FINDINGS: SUPPORT DEVICES: None. HEART / MEDIASTINUM: No significant abnormality. LUNGS / PLEURA: No significant pulmonary or pleural abnormality. No pneumothorax. ADDITIONAL FINDINGS: No significant additional findings. IMPRESSION: 1. No acute findings. Signer Name: Binu Hastings MD Signed: 06/02/2019 5:57 AM Workstation Name: [id number]
--- NOTE | 2019-06-02 06:49 | Emergency Department Report ---
ED General Adult HPI - General Chief complaint: Upper Respiratory Infection Stated complaint: JOINT PAIN/HEADACHE/CONGESTED/BUMP ON BACK Time Seen by Provider: 06/02/19 05:25 Source: patient Mode of arrival: Ambulatory Limitations: No Limitations - History of Present Illness Initial comments: Patient is a 24-year-old -B[place] male with a history of HIV and in a subclinical state who presented to the ED with complaint of acute onset persistent nasal and sinus congestion, dry cough, sore throat, headache, diffuse body aches and pains, subjective fever and chills and lightheadedness with a headache for the last 2 or loss. Patient states that he took Tylenol about 8 hours ago. Patient denies chest pain, nausea, vomiting, diarrhea, abdominal pain, dysuria, testicular pain, palpitation, shortness of breath or hematemesis or syncope. MD Complaint: diffuse body aches, nasal and sinus congestion, sore throat, dry cough -: Sudden, hour(s) (12) Location: face, chest Radiation: non-radiation Severity scale (0 -10): 4 Quality: aching, sharp, constant Consistency: constant Improves with: none Worsens with: none Associated Symptoms: denies other symptoms, cough, diaphoresis, fever/chills, headaches, loss of appetite, malaise. denies: confusion, nausea/vomiting, rash, seizure, shortness of breath, syncope Treatments Prior to Arrival: NSAID - Related Data Home Medications Medication Instructions Recorded Confirmed Last Taken Elviteg/Cob/Emtri/Tenof Alafen 1 each PO DAILY 08/20/17 08/20/17 08/19/17 [Genvoya Tablet] Previous Rx's Medication Instructions Recorded Last Taken Type Acetaminophen [Acetaminophen TAB] 325 mg PO Q4H PRN #30 tablet 08/22/17 Unknown Rx levoFLOXacin [Levaquin TAB] 500 mg PO Q24HR #7 day 08/22/17 Unknown Rx metroNIDAZOLE [Flagyl TAB] 500 mg PO Q8HR #7 day 08/22/17 Unknown Rx Benzonatate [Tessalon Perles] 100 mg PO Q8HR #30 capsule 06/02/19 Unknown Rx Doxycycline Hyclate [Doxycycline 100 mg PO Q12HR #20 tab 06/02/19 Unknown Rx Hyclate TAB] Ibuprofen [Motrin] 800 mg PO Q8HR PRN #20 tablet 06/02/19 Unknown Rx Ondansetron [Zofran Odt] 4 mg PO Q6HR PRN #15 tab.rapdis 06/02/19 Unknown Rx Allergies Allergy/AdvReac Type Severity Reaction Status Date / Time shellfish derived Allergy Itching Verified 09/02/15 18:57 ED Review of Systems ROS: Stated complaint: JOINT PAIN/HEADACHE/CONGESTED/BUMP ON BACK Other details as noted in HPI Constitutional: chills, fever, weakness Eyes: denies: eye pain, eye discharge, vision change ENT: denies: ear pain, throat pain Respiratory: denies: cough, shortness of breath, wheezing Cardiovascular: denies: chest pain, palpitations Endocrine: no symptoms reported Gastrointestinal: denies: abdominal pain, nausea, diarrhea Genitourinary: denies: urgency, dysuria Musculoskeletal: back pain, arthralgia, myalgia. denies: joint swelling Skin: denies: rash, lesions Neurological: headache. denies: weakness, paresthesias Psychiatric: denies: anxiety, depression Hematological/Lymphatic: denies: easy bleeding, easy bruising ED Past Medical Hx - Past Medical History Hx Congestive Heart Failure: No Hx Diabetes: No Hx Asthma: No Hx COPD: No Hx HIV: Yes - Social History Smoking Status: Never Smoker - Medications Home Medications: Home Medications Medication Instructions Recorded Confirmed Last Taken Type Elviteg/Cob/Emtri/Tenof Alafen 1 each PO DAILY 08/20/17 08/20/17 08/19/17 History [Genvoya Tablet] Acetaminophen [Acetaminophen TAB] 325 mg PO Q4H PRN #30 tablet 08/22/17 Unknown Rx levoFLOXacin [Levaquin TAB] 500 mg PO Q24HR #7 day 08/22/17 Unknown Rx metroNIDAZOLE [Flagyl TAB] 500 mg PO Q8HR #7 day 08/22/17 Unknown Rx Benzonatate [Tessalon Perles] 100 mg PO Q8HR #30 capsule 06/02/19 Unknown Rx Doxycycline Hyclate [Doxycycline 100 mg PO Q12HR #20 tab 06/02/19 Unknown Rx Hyclate TAB] Ibuprofen [Motrin] 800 mg PO Q8HR PRN #20 tablet 06/02/19 Unknown Rx Ondansetron [Zofran Odt] 4 mg PO Q6HR PRN #15 tab.rapdis 06/02/19 Unknown Rx ED Physical Exam - General Limitations: No Limitations General appearance: alert, in no apparent distress - Head Head exam: Present: atraumatic, normocephalic, normal inspection - Eye Eye exam: Present: normal appearance, PERRL, EOMI. Absent: scleral icterus, nystagmus Pupils: Present: normal accommodation - ENT ENT exam: Present: mucous membranes moist, TM's normal bilaterally, normal external ear exam, other (grossly congested nasal passages with frontal sinus tenderness to palpation) - Neck Neck exam: Present: normal inspection, full ROM, lymphadenopathy - Respiratory Respiratory exam: Present: normal lung sounds bilaterally, chest wall tenderne ss. Absent: respiratory distress, wheezes, rales, rhonchi, accessory muscle use, decreased breath sounds, prolonged expiratory - Cardiovascular Cardiovascular Exam: Present: normal rhythm, tachycardia, normal heart sounds. Absent: systolic murmur, diastolic murmur, rubs, gallop - GI/Abdominal GI/Abdominal exam: Present: soft, normal bowel sounds. Absent: distended, tenderness, guarding, hyperactive bowel sounds, hypoactive bowel sounds, organomegaly - Rectal Rectal exam: Present: deferred - Extremities Exam Extremities exam: Present: normal inspection, full ROM, normal capillary refill - Back Exam Back exam: Present: normal inspection, full ROM. Absent: tenderness, CVA tenderness (R), CVA tenderness (L), muscle spasm, paraspinal tenderness, vertebral tenderness - Neurological Exam Neurological exam: Present: alert, oriented X3, CN II-XII intact, normal gait, reflexes normal - Psychiatric Psychiatric exam: Present: normal affect, normal mood - Skin Skin exam: Present: warm, dry, intact, normal color. Absent: rash ED Course Vital Signs 06/02/19 05:00 Temperature 98.2 F Pulse Rate 102 H Respiratory 18 Rate Blood Pressure 183/98 O2 Sat by Pulse 98 Oximetry - Reevaluation(s) Reevaluation #1: 06/02/19 06:49 This is a 24-year-old male who presents to the ED with weakness on sinus congestion, sinus pressure, headache, sore throat, diffuse body aches and pains and dry cough. In the ED, patient is alert and oriented 3 and is not in distress but appears to be sick. Patient was treated for pain and chest x-ray shows no acute cardiopulmonary abnormalities. Rapid strep test is pending. On reevaluation, patient's pain is well controlled medications, tachycardia resolved and patient was discharged home on medications and advised to follow-up with his primary care physician in 5-7 days for reevaluation or return to the ED immediately symptoms get worse. 06/02/19 06:50 ED Medical Decision Making - Radiology Data Radiology results: report reviewed, image reviewed Chest x-ray shows no acute cardiopulmonary abnormalities. - Medical Decision Making This is a 24-year-old male who presents to the ED with weakness on sinus congestion, sinus pressure, headache, sore throat, diffuse body aches and pains and dry cough. In the ED, patient is alert and oriented 3 and is not in distress but appears to be sick. Patient was treated for pain and chest x-ray shows no acute cardiopulmonary abnormalities. Rapid strep test is pending. On reevaluation, patient's pain is well controlled medications, tachycardia resolved and patient was discharged home on medications and advised to follow-up with his primary care physician in 5-7 days for reevaluation or return to the ED immediately symptoms get worse. 06/02/19 06:50 - Differential Diagnosis acute URI; Acute pharyngitis; Flu like symptoms Critical care attestation.: If time is entered above; I have spent that time in minutes in the direct care of this critically ill patient, excluding procedure time. ED Disposition Clinical Impression: Acute upper respiratory infection Acute pharyngitis Qualifiers: Pharyngitis/tonsillitis etiology: unspecified etiology Qualified Code(s): J02.9 - Acute pharyngitis, unspecified Acute bronchitis Qualifiers: Bronchitis organism: unspecified organism Qualified Code(s): J20.9 - Acute bronchitis, unspecified Disposition: DC-01 TO HOME OR SELFCARE Is pt being admited?: No Does the pt Need Aspirin: No Condition: Stable Instructions: Acute Bronchitis (ED), Upper Respiratory Infection (ED), Pharyngitis (ED) Additional Instructions: Take medications with food, drink plenty of fluids and follow-up with your primary care physician in 5-7 days for reevaluation. Return to the ED immediately if symptoms get worse. Prescriptions: Doxycycline Hyclate [Doxycycline Hyclate TAB] 100 mg PO Q12HR #20 tab Ibuprofen [Motrin] 800 mg PO Q8HR PRN #20 tablet PRN Reason: Pain , Severe (7-10) Benzonatate [Tessalon Perles] 100 mg PO Q8HR #30 capsule Ondansetron [Zofran Odt] 4 mg PO Q6HR PRN #15 tab.rapdis PRN Reason: Nausea Referrals: PRIMARY CARE,MD [Primary Care Provider] - 3-5 Days Forms: Work/School Release Form(ED) Time of Disposition: 06:54 Print Language: JAMAICAN
[2019-06-02 07:08] VITALS: BP 176/94
== END 2019-06-02 07:07 | disposition home or self-care (01) ==
LOC: ED 04:52
DX: J06.9 Acute upper respiratory infection, unspecified (principal); J02.9 Acute pharyngitis, unspecified; J20.9 Acute bronchitis, unspecified; Z91.013 Allergy to seafood; Z21 Asymptomatic human immunodeficiency virus [HIV] infection status; Z79.899 Other long term (current) drug therapy; Z79.1 Long term (current) use of non-steroidal anti-inflammatories (NSAID)
CPT/HCPCS: 71046; 87116; 87400; 87430; 99284

== ENCOUNTER 2019-06-04 17:09 | Emergency (ER) | payer SELFPAY ==
--- NOTE | 2019-06-04 17:14 | Emergency Department Report ---
Blank Doc - Documentation Documentation: This is a 24-year-old male that presents with boil to buttock area. This initial assessment/diagnostic orders/clinical plan/treatment(s) is/are subject to change based on patient's health status, clinical progression and re- assessment by fellow clinical providers in the ED. Further treatment and workup at subsequent clinical providers discretion. Patient/guardians urged not to elope from the ED as their condition may be serious if not clinically assessed and managed. Initial orders include: 1- Patient sent to [facility] for further evaluation and treatment
[2019-06-04] MEDS ORDERED: XYLOCAINE 1% MPF 5 mL INFILTRATI ONE (19:35)
[2019-06-04] MEDS ORDERED: CLEOCIN 900 MG/50 mL 900 MG/50 ML BAG IV ONE (19:35)
[2019-06-04] MEDS ORDERED: BACTRIM DS PO ONE (19:35)
[2019-06-04] MEDS ORDERED: PERCOCET 5/325 PO ONE (19:36)
[2019-06-04] MEDS ORDERED: ZOFRAN IV ONE (19:36)
[2019-06-04] MEDS ORDERED: TORADOL IV ONE (19:36)
[2019-06-04 20:34] LABS: Basophils % (Auto) 0.2 % (0.0-1.8); Eosinophils # (Auto) 0.1 K/mm3 (0.0-0.4); Eosinophils % (Auto) 1.3 % (0.0-4.3); Hematocrit 39.7 % (35.5-45.6); Hemoglobin 13.3 gm/dl (11.8-15.2); Lymphocytes # (Auto) 2.2 K/mm3 (1.2-5.4); Lymphocytes % (Auto) 19.3 % (13.4-35.0); Mean Corpuscular HGB Conc 33 % (32-34); Mean Corpuscular Volume 84 fl (84-94); Monocytes # (Auto) 1.3 K/mm3 (0.0-0.8); Platelet Count 248 K/mm3 (140-440); Red Blood Count 4.71 M/mm3 (3.65-5.03); Red Cell Distribution Width 13.8 % (13.2-15.2)
--- NOTE | 2019-06-04 20:37 | Cat Scan Report ---
CT LUMBAR SPINE WITHOUT CONTRAST INDICATION / CLINICAL INFORMATION: swollen abscess. TECHNIQUE: Axial CT images were obtained through the lumbar spine. Sagittal and coronal reformatted images were produced. All CT scans at this location are performed using CT dose reduction for AL[place] by means of a utomated exposure control. COMPARISON: CT abdomen pelvis 08/20/2017. FINDINGS: TRAUMA:There is no indication of fracture or traumatic subluxation. ALIGNMENT: Normal alignment is maintained throughout the lumbar region. VERTEBRAE: Vertebral morphology is normally maintained throughout. DISC SPACES: Disc height is fairly well maintained throughout the lumbar region. LEVEL BY LEVEL ANALYSIS: L1-2:No abnormality. L2-3:No abnormality. L3-4:No abnormality. L4-5:No abnormality. L5-S1:No abnormality. SPINAL CANAL: No significant abnormality. SACRUM:No significant abnormality of the visualized sacrum. PARASPINAL SOFT TISSUES: Infiltrative changes are seen in the subcutaneous fat between the skin surfa ce and the lumbodorsal fascia. This could be secondary to cellulitis. No discrete abscess formation i s observed. This finding extends from about the superior endplate of L3 down through the S2 level. Th mari findings have developed since previous study (CT abdomen and pelvis 08/20/2017.. IMPRESSION: 1. Infiltrative changes are present in the fat of the low back between the skin and lumbar dorsal fac ia may reflect presence of cellulitis. No definite abscess formation is observed. These findings have developed since 08/20/2017. 2. Otherwise normal CT lumbar spine. Signer Name: Ha Padilla MD Signed: 06/04/2019 8:33 PM Workstation Name: [id number]
[2019-06-04 21:02] LABS: Alanine Aminotransferase 25 units/L (7-56); Albumin 3.9 g/dL (3.9-5); BUN/Creatinine Ratio 6; Blood Urea Nitrogen 7 mg/dL (9-20); Hemolysis Index 2
--- NOTE | 2019-06-05 | Emergency Department Report ---
ED General Adult HPI - General Chief complaint: Skin/Abscess/Foreign Body Stated complaint: LOWER BACK CYST/PAIN Time Seen by Provider: 06/04/19 17:14 Source: patient Mode of arrival: Ambulatory Limitations: No Limitations - History of Present Illness Initial comments: Patient is a 24-year-old -[place] male with a history of HIV who presents with a complaint of painful swollen erythematous maculopapular rash with fluctuance on the lower back for the last 3 days. Patient denies fever, chills, nausea, vomiting, dizziness, abdominal pain, testicular pain, numbness or tingling or lower extremities bilaterally on my dizziness, saddle paresthes ia, urinary or bowel incontinence, fall or traumatic injury. Patient states that he has been taking [id number] medications with no relief. MD Complaint: swollen erythematous rash on lower back -: Sudden, days(s) (3) Location: back (lower) Radiation: non-radiation Severity scale (0 -10): 8 Quality: aching, sharp, constant Consistency: constant Improves with: none Worsens with: movement Associated Symptoms: denies other symptoms, loss of appetite, malaise, rash (swollen erythematous rash with purulent discharge). denies: confusion, chest pain, cough, diaphoresis, fever/chills, headaches, nausea/vomiting, seizure, shortness of breath, syncope, weakness, other - Related Data Home Medications Medication Instructions Recorded Confirmed Last Taken Elviteg/Cob/Emtri/Tenof Alafen 1 each PO DAILY 08/20/17 08/20/17 08/19/17 [Genvoya Tablet] Previous Rx's Medication Instructions Recorded Last Taken Type Acetaminophen [Acetaminophen TAB] 325 mg PO Q4H PRN #30 tablet 08/22/17 Unknown Rx levoFLOXacin [Levaquin TAB] 500 mg PO Q24HR #7 day 08/22/17 Unknown Rx metroNIDAZOLE [Flagyl TAB] 500 mg PO Q8HR #7 day 08/22/17 Unknown Rx Benzonatate [Tessalon Perles] 100 mg PO Q8HR #30 capsule 06/02/19 Unknown Rx Doxycycline Hyclate [Doxycycline 100 mg PO Q12HR #20 tab 06/02/19 Unknown Rx Hyclate TAB] Ibuprofen [Motrin] 800 mg PO Q8HR PRN #20 tablet 06/02/19 Unknown Rx Ondansetron [Zofran Odt] 4 mg PO Q6HR PRN #15 tab.rapdis 06/02/19 Unknown Rx Acetaminophen/Codeine [Tylenol 1 tab PO Q6H PRN #15 tab 06/05/19 Unknown Rx /Codeine # 3 tab] Clindamycin [Clindamycin CAP] 300 mg PO Q8HR #60 capsule 06/05/19 Unknown Rx Ibuprofen [Motrin] 800 mg PO Q8HR PRN #24 tablet 06/05/19 Unknown Rx Ondansetron [Zofran Odt] 4 mg PO Q8HR PRN #15 tab.rapdis 06/05/19 Unknown Rx Sulfamethoxazole/Trimethoprim 1 each PO Q12H #20 tablet 06/05/19 Unknown Rx [Bactrim DS TAB] Allergies Allergy/AdvReac Type Severity Reaction Status Date / Time shellfish derived Allergy Itching Verified 09/02/15 18:57 ED Review of Systems ROS: Stated complaint: LOWER BACK CYST/PAIN Other details as noted in HPI Constitutional: denies: chills, fever Eyes: denies: eye pain, eye discharge, vision change ENT: denies: ear pain, throat pain Respiratory: denies: cough, shortness of breath, wheezing Cardiovascular: denies: chest pain, palpitations Endocrine: no symptoms reported Gastrointestinal: denies: abdominal pain, nausea, diarrhea Genitourinary: denies: urgency, dysuria Musculoskeletal: back pain (due to swollen erythematous fluctuant maculopapular rash on lumbosacral area). denies: joint swelling, arthralgia Skin: denies: rash, lesions Neurological: denies: headache, weakness, paresthesias Psychiatric: denies: anxiety, depression Hematological/Lymphatic: denies: easy bleeding, easy bruising ED Past Medical Hx - Past Medical History Previous Medical History?: Yes Hx Congestive Heart Failure: No Hx Diabetes: No Hx Asthma: No Hx COPD: No Hx HIV: Yes - Surgical History Past Surgical History?: No - Social History Smoking Status: Never Smoker Substance Use Type: None - Medications Home Medications: Home Medications Medication Instructions Recorded Confirmed Last Taken Type Elviteg/Cob/Emtri/Tenof Alafen 1 each PO DAILY 08/20/17 08/20/17 08/19/17 History [Genvoya Tablet] Acetaminophen [Acetaminophen TAB] 325 mg PO Q4H PRN #30 tablet 08/22/17 Unknown Rx levoFLOXacin [Levaquin TAB] 500 mg PO Q24HR #7 day 08/22/17 Unknown Rx metroNIDAZOLE [Flagyl TAB] 500 mg PO Q8HR #7 day 08/22/17 Unknown Rx Benzonatate [Tessalon Perles] 100 mg PO Q8HR #30 capsule 06/02/19 Unknown Rx Doxycycline Hyclate [Doxycycline 100 mg PO Q12HR #20 tab 06/02/19 Unknown Rx Hyclate TAB] Ibuprofen [Motrin] 800 mg PO Q8HR PRN #20 tablet 06/02/19 Unknown Rx Ondansetron [Zofran Odt] 4 mg PO Q6HR PRN #15 tab.rapdis 06/02/19 Unknown Rx Acetaminophen/Codeine [Tylenol 1 tab PO Q6H PRN #15 tab 06/05/19 Unknown Rx /Codeine # 3 tab] Clindamycin [Clindamycin CAP] 300 mg PO Q8HR #60 capsule 06/05/19 Unknown Rx Ibuprofen [Motrin] 800 mg PO Q8HR PRN #24 tablet 06/05/19 Unknown Rx Ondansetron [Zofran Odt] 4 mg PO Q8HR PRN #15 tab.rapdis 06/05/19 Unknown Rx Sulfamethoxazole/Trimethoprim 1 each PO Q12H #20 tablet 06/05/19 Unknown Rx [Bactrim DS TAB] ED Physical Exam - General Limitations: No Limitations General appearance: alert, in no apparent distress - Head Head exam: Present: atraumatic, normocephalic, normal inspection - Eye Eye exam: Present: normal appearance, PERRL, EOMI Pupils: Present: normal accommodation - ENT ENT exam: Present: normal exam, normal orophraynx, mucous membranes moist, TM's normal bilaterally, normal external ear exam - Neck Neck exam: Present: normal inspection, full ROM. Absent: tenderness, lymphadenopathy - Respiratory Respiratory exam: Present: normal lung sounds bilaterally. Absent: respiratory distress, wheezes, rales, stridor, chest wall tenderness, accessory muscle use - Cardiovascular Cardiovascular Exam: Present: normal rhythm, tachycardia, normal heart sounds. Absent: systolic murmur, diastolic murmur, rubs, gallop - GI/Abdominal GI/Abdominal exam: Present: soft, normal bowel sounds. Absent: tenderness, guarding, rebound, hyperactive bowel sounds, hypoactive bowel sounds, organomegaly, mass, bruit - Rectal Rectal exam: Present: deferred - Extremities Exam Extremities exam: Present: normal inspection, full ROM, normal capillary refill - Back Exam Back exam: Present: normal inspection, tenderness (Palpable lumbosacral tenderness due to a swollen erythematous maculopapular fluctuant rash), CVA tend erness (L). Absent: muscle spasm - Neurological Exam Neurological exam: Present: alert, oriented X3 - Psychiatric Psychiatric exam: Present: normal affect, normal mood - Skin Skin exam: Present: warm, dry, intact, rash (erythematous maculopapular fluctuant rash on lumbosacral area with purulent discharge and tenderness), erythema ED Course Vital Signs 06/04/19 06/04/19 17:15 21:05 Temperature 98.3 F Pulse Rate 109 H Respiratory 16 16 Rate Blood Pressure 158/94 [Left] O2 Sat by Pulse 99 Oximetry - Reevaluation(s) Reevaluation #1: 06/04/19 23:58 This is a 24-year-old male with a history of HIV who presented to the ED with painful swollen erythematous maculopapular rash with fluctuance and lumbosacral area. In the ED, patient is alert and oriented 3, tachycardic in triage but in no acute distress and appears to be in pain. Lab test results show acute leukocytosis of 11,500. There is lab test results are nonactionable. Patient was treated the ED with clindamycin 900 mg IV 1, normal saline 1 L IV 1 bolus, Toradol, oral Bactrim DS by mouth 1 and Percocet 5 mg/325 mg by mouth. The wound was cleaned thoroughly and debrided, and packed by protocol. The L-spine CT w/o contrast shows infiltrative changes are seen in the subcutaneous fat between the skin surface and the lumbodorsal fascia. This could be secondary to cellulitis. No discrete abscess formation is observed. This finding extends from about the superior endplate of L3 down through the S2 level. These findings have developed since previous study. On reevaluation, patient's pain is well controlled with medications, patient stated that he was feeling much better and tachycardia also resolved. Patient was afebrile prior to being discharged. Patient was discharged home on medications including antibiotics and pain medications and advised to follow-up with his primary care physician in 7-10 days for reevaluation or return to the ED immediately if symptoms get worse. Patient was otherwise advised to return to the ED in 2 days for wound recheck and packing removal. 06/05/19 00:10 - I & D Lower Back Type of Procedure: Simple Site: lower back Blade Size: 11 I & D Procedure: betadine prep, sterile drapes applied, sterile dressing ap plied, gauze wick placed Progress: Patient tolerated the procedure well. The wound was thoroughly debrided and cleaned, and packed dressed appropriately. Patient advised to return to the ED in 2 days ED Medical Decision Making - Lab Data Result diagrams: 06/04/19 19:59 06/04/19 19:59 - Radiology Data Radiology results: report reviewed, image reviewed Findings [facility] [address] [place] [address] Cat Scan Report Signed Patient: VITO REES MR#: [id number] : 1995 Acct:[id number] Age/Sex: 24 / M ADM Date: 06/04/19 Loc: ED Attending Dr: Ordering Physician: VIANCA GARCIA Date of Service: 06/04/19 Procedure(s): CT lumbar spine wo con Accession Number(s): [id number] cc: VIANCA GARCIA CT LUMBAR SPINE WITHOUT CONTRAST INDICATION / CLINICAL INFORMATION: swollen abscess. TECHNIQUE: Axial CT images were obtained through the lumbar spine. Sagittal and coronal reformatted images were produced. All CT scans at this location are performed using CT dose reduction for ALARA by means of automated exposure control. COMPARISON: CT abdomen pelvis 08/20/2017. FINDINGS: TRAUMA:There is no indication of fracture or traumatic subluxation. ALIGNMENT: Normal alignment is maintained throughout the lumbar region. VERTEBRAE: Vertebral morphology is normally maintained throughout. DISC SPACES: Disc height is fairly well maintained throughout the lumbar region. LEVEL BY LEVEL ANALYSIS: L1-2:No abnormality. L2-3:No abnormality. L3-4:No abnormality. L4-5:No abnormality. L5-S1:No abnormality. SPINAL CANAL: No significant abnormality. SACRUM:No significant abnormality of the visualized sacrum. PARASPINAL SOFT TISSUES: Infiltrative changes are seen in the subcutaneous fat between the skin surface and the lumbodorsal fascia. This could be secondary to cellulitis. No discrete abscess formation is observed. This finding extends from about the superior endplate of L3 down through the S2 level. These findings have developed since previous study (CT abdomen and pelvis 08/20/2017.. IMPRESSION: 1. Infiltrative changes are present in the fat of the low back between the skin and lumbar dorsal facia may reflect presence of cellulitis. No definite abscess formation is observed. These findings have developed since 08/20/2017. 2. Otherwise normal CT lumbar spine. Signer Name: Ha Padilla MD Signed: 06/04/2019 8:33 PM Workstation Name: [id number] Transcribed By: Dictated By: Ha Padilla MD Electronically Authenticated By: Ha Padilla MD Signed Date/Time: 06/04/192032 - Medical Decision Making This is a 24-year-old male with a history of HIV who presented to the ED with painful swollen erythematous maculopapular rash with fluctuance and lumbosacral area. In the ED, patient is alert and oriented 3, tachycardic in triage but in no acute distress and appears to be in pain. Lab test results show acute leukocytosis of 11,500. There is lab test results are nonactionable. Patient was treated the ED with clindamycin 900 mg IV 1, normal saline 1 L IV 1 bolus, Toradol, oral Bactrim DS by mouth 1 and Percocet 5 mg/325 mg by mouth. The wound was cleaned thoroughly and debrided, and packed by protocol. The L-spine CT w/o contrast shows infiltrative changes are seen in the subcutaneous fat between the skin surface and the lumbodorsal fascia. This could be secondary to cellulitis. No discrete abscess formation is observed. This finding extends from about the superior endplate of L3 down through the S2 level. These findings have developed since previous study. On reevaluation, patient's pain is well controlled with medications, patient stated that he was feeling much better and tachycardia also resolved. Patient was afebrile prior to being discharged. Patient was discharged home on medications including antibiotics and pain medications and advised to follow-up with his primary care physician in 7-10 days for reevaluation or return to the ED immediately if symptoms get worse. Patient was otherwise advised to return to the ED in 2 days for wound recheck and packing removal. - Differential Diagnosis cellulitis; abscess of cutaneous; Critical care attestation.: If time is entered above; I have spent that time in minutes in the direct care of this critically ill patient, excluding procedure time. ED Disposition Clinical Impression: Cellulitis of lower back, Cutaneous abscess of back excluding buttocks, Acute folliculitis Disposition: TO HOME OR SELFCARE Is pt being admited?: No Does the pt Need Aspirin: No Condition: Stable Instructions: Cellulitis (ED), Abscess (ED) Additional Instructions: Take medication with food, drink plenty of fluids and follow up with your primary care physician in 7-10 days for reevaluation. Return to ED immediately if symptoms get worse. Otherwise return to the ED in 2 days for wound recheck and packing removal. Prescriptions: Sulfamethoxazole/Trimethoprim [Bactrim DS TAB] 1 each PO Q12H #20 tablet Clindamycin [Clindamycin CAP] 300 mg PO Q8HR #60 capsule Ibuprofen [Motrin] 800 mg PO Q8HR PRN #24 tablet PRN Reason: Pain , Severe (7-10) Acetaminophen/Codeine [Tylenol /Codeine # 3 tab] 1 tab PO Q6H PRN #15 tab PRN Reason: Pain , Severe (7-10) Ondansetron [Zofran Odt] 4 mg PO Q8HR PRN #15 tab.rapdis PRN Reason: Nausea Referrals: PRIMARY CARE, [Primary Care Provider] - 3-5 Days Time of Disposition: 00:06 Print Language: DANISH
[2019-06-05 00:30] VITALS: BP 138/90
== END 2019-06-05 00:28 | disposition home or self-care (01) ==
LOC: ED 17:09
DX: L03.312 Cellulitis of back [any part except buttock and flank] (principal); L73.9 Follicular disorder, unspecified
CPT/HCPCS: 10060; 36415; 72131; 80053; 85025; 87040; 96365; 96375; 99284; J1885; J2405